=== PATIENT | male | born 1980 ===

== ENCOUNTER 2021-09-12 11:46 | Emergency (ER) | payer SELFPAY ==
[2021-09-12 11:54] VITALS: BP 136/86
--- NOTE | 2021-09-12 12:32 | Emergency Department Report ---
Minor Respiratory - HPI Chief Complaint: Dyspnea/Respdistress Stated Complaint: SHORTNESS OF BREATH Time Seen by Provider: 09/12/21 12:22 Duration: 2 Days Pain Location: Facial Severity: mild Minor Respiratory: Yes Rhinorrhea, Yes Able to Tolerate Fluids, Yes Cough, Yes Sick Contacts, Yes Shortness of Breath, No Sore Throat, No Ear Pain, No Hemoptysis, No Chest Pain, No Fever Other History: Chief complaint shortness of breath cough nasal congestion. HPI: This 40-year-old male with a significant past medical history who presents with shortness of breath cough nasal congestion for 2 days. He had exposure to persons infected with COVID-19. Several work colleagues have tested positive. He denies sore throat, denies sense of taste or smell. Denies fever body aches. Has not obtained a Covid test. He has not vaccinated against COVID-19. ED Review of Systems ROS: Stated complaint: SHORTNESS OF BREATH Other details as noted in HPI Comment: All other systems reviewed and negative Constitutional: denies: chills, fever ENT: congestion Respiratory: shortness of breath Cardiovascular: denies: chest pain Gastrointestinal: denies: abdominal pain, nausea ED Past Medical Hx - Past Medical History Previous Medical History?: No - Surgical History Past Surgical History?: No - Social History Smoking Status: Current Every Day Smoker Substance Use Type: Marijuana Minor Respiratory Exam - Exam General: Vital signs noted. No distress. Alert and acting appropriately. HEENT: Yes Moist Mucous Membranes, No Pharyngeal Erythema, No Pharyngeal Exudates, No Rhinorrhea, No Conjuctival Injection Ear: Neither EAC Pain, Neither EAC Discharge Neck: Yes Supple, No Adenopathy Lungs: Yes Good Air Exchange, No Wheezes, No Ronchi, No Stridor, No Cough, No Labored Respirations, No Retractions, No Use of Accessory Muscles, No Other Abnormal Lung Sounds Heart: Yes Regular, No Murmur Abdomen: Yes Normal Bowel Sounds, No Tenderness, No Peritoneal Signs Skin: No Rash, No Edema Neurologic: Alert and oriented, no deficits. Musculoskeletal: Unremarkable. ED Course Vital Signs 09/12/21 11:51 Temperature 98.4 F Pulse Rate 77 Respiratory 16 Rate Blood Pressure 136/86 O2 Sat by Pulse 100 Oximetry ED Medical Decision Making - Medical Decision Making Suspected COVID-19 infection recommended outpatient testing. Stable vital signs. No tachycardia suggest pulmonary embolism. Discharged home. Critical care attestation.: If time is entered above; I have spent that time in minutes in the direct care of this critically ill patient, excluding procedure time. ED Disposition Clinical Impression: Suspected COVID-19 virus infection, Viral illness Disposition: HOME / SELF CARE / HOMELESS Is pt being admited?: No Does the pt Need Aspirin: No Condition: Stable Instructions: Viral Illness, Adult Forms: Work/School Release Form(ED)
== END 2021-09-12 12:45 | disposition home or self-care (01) ==
LOC: ED 11:46
DX: B34.9 Viral infection, unspecified (principal); F17.200 Nicotine dependence, unspecified, uncomplicated; Z20.822 Contact with and (suspected) exposure to COVID-19; F12.10 Cannabis abuse, uncomplicated
CPT/HCPCS: 99281